=== PATIENT | female | born 1950 | race Caucasian/White ===

== ENCOUNTER 2017-08-24 20:36 | Emergency (ER) | payer MEDICARE, MEDICAID ==
[~2017-08-24] VITALS: Ht 170.2 cm; Wt 81.6 kg
[2017-08-24 23:53] LABS: Basophils # (auto) 0.1 uL; Eosinophils # (auto) 0.5 uL; Mean Corpuscular Volume 85.1 fL (80.0-100.0); Nucleated Red Blood Cells % 0.1 %
[2017-08-24 23:55] LABS: Hematocrit 42.9 % (36.0-46.0); Hemoglobin 14.2 g/dL (12.2-16.2); Lymphocytes # (auto) 1.2 uL; Lymphocytes % (auto) 12.1 % (10.0-50.0); Mean Corpuscular Hemoglobin 28.1 pg (28.0-32.0); Mean Platelet Volume 8.9 fL (6.9-10.8); Monocytes % (auto) 9.9 % (0.0-12.0); Platelet Count (auto) 629 10^3/uL (140-450); Red Cell Distribution Width 14.8 % (11.8-14.3); White Blood Cell 9.7 10^3/uL (4.4-10.8)
[2017-08-24 23:59] LABS: Albumin 2.7 g/dL (3.4-5.0); Anion Gap 7 (5-15); Aspartate Aminotransferase 51 U/L (15-37); BUN/Creatinine Ratio 22.5; Blood Urea Nitrogen 25 mg/dL (7-18); Calcium 7.9 mg/dL (8.5-10.1); Carbon Dioxide 28 mmol/L (21-32); Chloride 101 mmol/L (98-107); GFR African American 63 mL/min; GFR Non-African American 52 mL/min; Glucose 96 mg/dL (74-106); INR 1.16 (0.9-1.15); Magnesium 2.6 mg/dL (1.6-2.6); Partial Thromboplastin Time 41.8 sec (22.64-33.71); Potassium 4.2 mmol/L (3.5-5.1); Prothrombin Time 12.7 sec (9.37-12.3); Sodium 136 mmol/L (136-145)
[2017-08-25 00:05] LABS: Alkaline Phosphatase 139 U/L (45-117); Bilirubin, Total 1.2 mg/dL (0.2-1.0); Total Protein 7.3 g/dL (6.4-8.2)
[2017-08-25] MEDS ORDERED: MORPHINE SULFATE 4 MG/ML SYRG IV ONE ×2 (00:15→04:30)
[2017-08-25] MEDS ORDERED: ONDANSETRON HCL 4 MG/2 ML VIAL IV ONE ×2 (00:15→04:30)
[2017-08-25 00:44] LABS: B-Type Natriuretic Peptide 97.8 pg/mL (0-100)
[2017-08-25 00:48] LABS: Temperature: 22.8 C (20.0-25.0)
[2017-08-25 06:02] VITALS: BP 118/78
== END 2017-08-25 03:57 | disposition home or self-care (01) ==
LOC: EDBD 20:36 → ER 20:40
DX: R04.0 Epistaxis (principal); D68.9 Coagulation defect, unspecified; I50.9 Heart failure, unspecified; I11.0 Hypertensive heart disease with heart failure; K21.9 Gastro-esophageal reflux disease without esophagitis; J44.9 Chronic obstructive pulmonary disease, unspecified; I48.91 Unspecified atrial fibrillation
CPT/HCPCS: 36415; 71010; 80053; 83735; 83880; 84484; 85025; 85610; 85730; 93005; 96374; 96375; 96376; 99285; J2270; J2405